=== PATIENT | female | born 1955 | race Caucasian/White ===

== ENCOUNTER 2016-11-08 14:32 | Inpatient (IN) ==
[2016-11-08] MEDS ORDERED: SOLU-MEDROL IV ONE (14:51)
[2016-11-08] MEDS ORDERED: VOLTAREN PO PRN (17:10)
[2016-11-08] MEDS ORDERED: ZOFRAN IV PRN (17:10)
[2016-11-08 17:39] LABS: MANUAL DIFF NEEDED? NO
[2016-11-08 17:54] LABS: BASO% 0.4 % (0.0-0.8); EOS# 0.63 X1000 (0.0-0.7); EOS% 11.8 % (0.0-10.0); HEMATOCRIT 41.3 % (37.0-47.0); HEMOGLOBIN 13.8 g/dL (12.0-16.0); IMM GRAN# 0.02 X1000 (0.0-0.04); IMM GRAN% 0.4 % (0.0-0.5); LYMPH# 2.07 X1000 (1.2-3.4); LYMPH% 38.9 % (20.5-51.1); MCH 30.5 PG (27-31); MCHC 33.4 g/dL (33-37); MCV 91.2 FL (81-99); MONO# 0.43 X1000 (0.11-0.59); MONO% 8.1 % (1.7-9.3); MPV 8.7 FL (7.4-10.4); NEUT% 40.4 % (42.2-75.2); PLT 288 X1000 (130-400); RBC 4.53 XMIL (4.2-5.4)
[2016-11-08 18:17] LABS: AGAP 14; BUN 15 mg/dL (8-22); CHLORIDE 95 mmol/L (98-107); COSMO 277; POTASSIUM 3.8 mmol/L (3.5-5.1); SODIUM 134 mmol/L (136-145); TCO2 25 mmol/L (25-35)
[2016-11-08] MEDS: NS 1,000 ML IV SCH (18:51)
[2016-11-08] MEDS: ROCEPHIN 1 GM/NS 1 GM/50 ML IVPB IV SCH (18:52)
[2016-11-08] MEDS: LOVENOX SUBQ SCH (18:52)
[2016-11-08] MEDS: DUONEB (A & A) INH SCH ×2 (19:26→23:07)
[2016-11-08] MEDS: DULERA 100 MCG/5 MCG INHALER INH SCH (19:27)
[2016-11-08] MEDS: TUDORZA PRESSAIR INHALER INH SCH (19:28)
[2016-11-08] MEDS: SOLU-MEDROL IV SCH (19:49)
[2016-11-08] MEDS: ZITHROMAX 500 MG/NS 500 MG/250 ML IVPB IV SCH (19:54)
[2016-11-08] MEDS: CELEXA PO SCH (20:26)
[2016-11-08] MEDS: GLUCOPHAGE PO SCH (20:26)
[2016-11-08] MEDS: ZANTAC PO SCH (20:26)
[2016-11-08] MEDS: ROBAXIN PO SCH (20:26)
[2016-11-08] MEDS: MEVACOR PO SCH (20:27)
[2016-11-08] MEDS: COZAAR PO SCH (20:27)
[2016-11-08] MEDS: REQUIP PO SCH (20:27)
[2016-11-08] MEDS: COREG PO SCH (20:27)
[2016-11-09] MEDS: SOLU-MEDROL IV SCH ×5 (00:23→23:30)
[2016-11-09] MEDS: DUONEB (A & A) INH SCH ×6 (03:28→22:50)
[2016-11-09] MEDS: NS 1,000 ML IV SCH ×2 (05:33→09:00)
[2016-11-09] MEDS: PROTONIX PO SCH (06:06)
--- NOTE | 2016-11-09 06:46 | Diag Imaging Result Document ---
PROCEDURE NAME: CHEST-2 VIEWS - 11/08/2016 FRONTAL AND LATERAL CHEST, TWO VIEWS: COMPARISON: 09/02/2015. FINDINGS: The lungs are well expanded. The heart is not enlarged. The vessels are not distended. No pneumonia. No pleural effusions. IMPRESSION: No acute abnormality.
[2016-11-09] MEDS: DULERA 100 MCG/5 MCG INHALER INH SCH ×2 (07:30→19:20)
[2016-11-09] MEDS: TUDORZA PRESSAIR INHALER INH SCH ×2 (07:30→19:20)
[2016-11-09] MEDS: REQUIP PO SCH ×2 (08:21→20:34)
[2016-11-09] MEDS: ROBAXIN PO SCH ×3 (08:21→20:35)
[2016-11-09] MEDS: COZAAR PO SCH ×2 (08:22→20:34)
[2016-11-09] MEDS: PATIENT'S OWN MED PO SCH (08:22)
[2016-11-09] MEDS: COREG PO SCH ×2 (08:22→20:34)
[2016-11-09] MEDS: ZANTAC PO SCH ×2 (08:22→20:33)
--- NOTE | 2016-11-09 09:38 | PROGRESS NOTE ---
DATE: 11/09/2016 SUBJECTIVE: Ms. Otero was admitted to [facility] with an acute asthma exacerbation complicated by tracheobronchitis. Her initial chest x-ray was clear. We have been treating her with supplemental O2, DuoNeb nebulizer treatments, and IV Solu-Medrol. She continues with mild shortness of breath and a cough productive of yellowish sputum. She is still wheezing but her air movement has improved. O2 saturations are ranging from 90% to -92% on room air. We added Zantac 150 mg b.i.d. for her underlying reflux in addition to the pantoprazole that she takes daily. She had less reflux-type symptoms last night. OBJECTIVE: Vital signs: Temperature 97.6 degrees, pulse 91, respirations 19, BP 106/62. CV: Regular rate and rhythm. Lungs: Diffuse end-expiratory wheezing with forced expiration. Abdomen: Soft, nontender, with active bowel sounds. ASSESSMENT AND PLAN: 1. Acute asthma exacerbation with tracheobronchitis. I will continue supplemental O2, DuoNeb nebulizer treatments, IV Solu-Medrol and broad-spectrum antibiotics including Zithromax and Rocephin. 2. Hypertension. Her blood pressure is stable. I will continue her current regimen of medications. 3. Type 2 [id number] diabetes mellitus. Blood sugars are trending upward on the steroids. We will continue to pattern sugars and a Humulin R sliding scale. cc: Kelin Rosales MD
[2016-11-09] MEDS: LOVENOX SUBQ SCH (16:48)
[2016-11-09] MEDS: ROCEPHIN 1 GM/NS 1 GM/50 ML IVPB IV SCH (16:48)
[2016-11-09] MEDS: ZITHROMAX 500 MG/NS 500 MG/250 ML IVPB IV SCH (18:00)
[2016-11-09] MEDS: MEVACOR PO SCH (20:34)
[2016-11-09] MEDS: GLUCOPHAGE PO SCH (20:34)
[2016-11-09] MEDS: CELEXA PO SCH (20:34)
[2016-11-09] MEDS: TYLENOL PO PRN (20:35)
[2016-11-09] MEDS ORDERED: HUMALOG SUBQ SCH (21:00)
[2016-11-10] MEDS: NS 1,000 ML IV SCH (01:35)
[2016-11-10] MEDS: DUONEB (A & A) INH SCH ×6 (04:04→23:07)
[2016-11-10] MEDS: SOLU-MEDROL IV SCH ×2 (05:23→17:03)
[2016-11-10] MEDS: HUMALOG SUBQ SCH ×5 (06:10→22:52)
[2016-11-10] MEDS: PROTONIX PO SCH (06:14)
[2016-11-10] MEDS ORDERED: SALINE LOCK IV FLUID XX ONE (06:33)
--- NOTE | 2016-11-10 06:55 | PROGRESS NOTE ---
DATE: 11/10/2016 SUBJECTIVE: Ms. Otero was admitted to [facility] with an acute asthma exacerbation complicated by tracheobronchitis. During the night, her oxygen level dropped to 88% on room air. It is now on 92% on room air. She continues with mild dyspnea and diffuse wheezing. She continues with a persistent cough. She denies any chest pain, palpitations, or anginal equivalents. Blood sugars are still fluctuating on the IV Solu-Medrol. Blood sugars are ranging from 184-285. OBJECTIVE: Vital Signs: Temperature 98.3 degrees, pulse 95, respiratory rate 20, BP 116/78. CV: Regular rate and rhythm. Lungs: End-expiratory wheezing with forced expiration in all lung luis. Abdomen: Soft, nontender, with active bowel sounds. Extremities: Without edema. ASSESSMENT AND PLAN: 1. Acute asthma exacerbation with tracheobronchitis. Her O2 saturations are still marginal. It is worrisome to me that her O2 saturations dropped to 88% during the night. She is still wheezing. I do not believe that it is safe for her to go home. We will continue DuoNeb nebulizer treatments, taper the IV steroids to 80 mg IV q.8 hours due to jitteriness and continue broad-spectrum antibiotics. We will check a PA and lateral chest x-ray. 2. Hypertension. Her blood pressure is stable. I will continue her current regimen of medications. 3. Type 2 [id number] diabetes mellitus. Her blood sugars are trending upward. Because of IV steroids. We will continue her on an 1800 calorie ADA diet. Pattern sugars, Humulin R sliding scale, and her regular home dosage of metformin. cc: Kelin Rosales MD
[2016-11-10] MEDS: DULERA 100 MCG/5 MCG INHALER INH SCH ×2 (08:24→19:26)
[2016-11-10] MEDS: TUDORZA PRESSAIR INHALER INH SCH ×2 (08:25→19:26)
[2016-11-10] MEDS: REQUIP PO SCH ×2 (08:49→22:50)
[2016-11-10] MEDS: COREG PO SCH ×2 (08:49→22:51)
[2016-11-10] MEDS: COZAAR PO SCH ×2 (08:49→22:51)
[2016-11-10] MEDS: ZANTAC PO SCH ×2 (08:49→22:51)
[2016-11-10] MEDS: PATIENT'S OWN MED PO SCH (08:49)
[2016-11-10] MEDS: ROBAXIN PO SCH ×2 (08:49→22:52)
--- NOTE | 2016-11-10 08:52 | Diag Imaging Result Document ---
PROCEDURE NAME: CHEST-2 VIEWS - 11/10/2016 PA AND LATERAL RADIOGRAPH OF THE CHEST: COMPARISON: 11/08/2016. FINDINGS: The lungs are grossly clear. There is no discrete pleural fluid collection or evidence of pneumothorax. The cardiomediastinal silhouette and upper airway are grossly unremarkable. IMPRESSION: No evidence of acute chest pathology.
[2016-11-10] MEDS: ROCEPHIN 1 GM/NS 1 GM/50 ML IVPB IV SCH (17:02)
[2016-11-10] MEDS: LOVENOX SUBQ SCH (17:03)
[2016-11-10] MEDS: ZITHROMAX 500 MG/NS 500 MG/250 ML IVPB IV SCH (17:13)
[2016-11-10] MEDS: GLUCOPHAGE PO SCH (22:51)
[2016-11-10] MEDS: MEVACOR PO SCH (22:51)
[2016-11-10] MEDS: CELEXA PO SCH (22:52)
[2016-11-11] MEDS: SOLU-MEDROL IV SCH ×2 (01:24→09:47)
[2016-11-11] MEDS: DUONEB (A & A) INH SCH ×3 (04:08→10:58)
[2016-11-11] MEDS: TYLENOL PO PRN (04:36)
[2016-11-11 05:12] VITALS: BP 124/79
[2016-11-11] MEDS: HUMALOG SUBQ SCH ×2 (06:19→11:46)
[2016-11-11] MEDS: PROTONIX PO SCH (06:20)
[2016-11-11] MEDS: TUDORZA PRESSAIR INHALER INH SCH (07:59)
[2016-11-11] MEDS: DULERA 100 MCG/5 MCG INHALER INH SCH (07:59)
[2016-11-11] MEDS: REQUIP PO SCH (09:47)
[2016-11-11] MEDS: ZANTAC PO SCH (09:47)
[2016-11-11] MEDS: COZAAR PO SCH (09:47)
[2016-11-11] MEDS: ROBAXIN PO SCH (09:48)
[2016-11-11] MEDS: COREG PO SCH (09:48)
[2016-11-11] MEDS: PATIENT'S OWN MED PO SCH (11:46)
--- NOTE | 2016-11-11 22:32 | DISCHARGE SUMMARY ---
ADMISSION DATE: 11/08/2016 DISCHARGE DATE: 11/11/2016 ADMISSION DIAGNOSIS: Shortness of breath and wheezing. DISCHARGE DIAGNOSES: 1. Acute exacerbation of asthma. 2. Tracheobronchitis. 3. Hypertension, present on arrival. 4. Type 2 diabetes, present on arrival. CONSULTATIONS: None. PROCEDURES: 1. A chest x-ray was performed on 11/08/2016, which revealed no acute abnormality. 2. A chest x-ray was performed on 11/10/2016, which revealed no evidence of acute chest pathology. HISTORY AND PHYSICAL EXAMINATION: See admit note. PHYSICAL EXAMINATION PRIOR TO DISCHARGE: Vital Signs: Temperature 98 degrees, heart rate 91, respirations 18, blood pressure is 124/79. General: Well-nourished, well-developed, in no acute distress. Cardiovascular: Regular rate and rhythm. No significant murmurs, rubs, or gallops. Pulmonary: Clear to auscultation bilaterally. Abdomen: Soft, nontender, nondistended. Positive bowel sounds. Extremities: Moves all extremities well. No significant clubbing, cyanosis, or edema. Dermatologic: Evaluation reveals no evidence of rash. LABORATORY DATA PRIOR TO DISCHARGE: None. HOSPITAL COURSE: Patient was admitted as per history and physical examination. Hospital course per condition is as follows: 1. Acute exacerbation of asthma - Upon admission, the patient was noted to have shortness of breath, bronchospasm, and hypoxia. It was felt this likely was precipitated by an underlying tracheobronchitis. The patient was placed on Rocephin, azithromycin, IV steroids, and bronchodilators. Unfortunately, patient's hospital course was complicated by a slow recovery. The patient was maintained on IV Solu-Medrol throughout hospitalization and routine bronchodilators. She tolerated this very well. On the day of discharge, patient was wheeze- free. She was taking Solu-Medrol 80 mg every 8 hours. The patient expressed her desire to be discharged home, as she has had similar conditions on multiple occasions in the past. I have discussed that often we will taper the IV steroids prior to discharge on oral steroids. She voiced good understanding and wished to pursue outpatient care. The patient will be discharged home with antibiotics as described below. We will continue DuoNeb every 4 hours as needed. We will start a Medrol Dosepak. The patient will need close followup as an outpatient. She understands there is a risk of rebound with discharge home this early. 2. Tracheobronchitis - The patient was diagnosed upon admission. Chest x-ray remained clear. At time of discharge, we will transition patient from Rocephin and azithromycin therapy to levofloxacin. She will complete an additional 5 days as an outpatient. 3. Hypertension - The patient's blood pressure remained reasonably stable while hospitalized on her current regimen. She will be discharged home on her previous home regimen. 4. Type 2 diabetes - Patient's blood sugars increased while hospitalized, associated with steroids. We will continue her home regimen. She is to monitor this, and we will consider whether a sliding-scale insulin is appropriate at home. I suspect with the very short course of steroids, this will not be necessary. DISCHARGE CONDITION: Good. DISPOSITION: Discharge to home. MEDICATIONS: 1. DuoNeb every 4 hours. 2. Dulera 100/5 two puffs twice daily. 3. Pantoprazole 40 mg a day. 4. Levofloxacin 500 mg daily for 5 days. 5. Tylenol 650 mg as needed. 6. Tudorza 1 puff twice daily. 7. Medrol Dosepak. 8. Ranitidine 150 mg twice daily as needed. 9. Citalopram 20 mg at bedtime. 10. Metformin 500 mg at bedtime. 11. Lovastatin 20 mg at bedtime. 12. Losartan 50 mg twice daily. 13. Coreg 6.25 mg twice daily. 14. Adipex 37.5 mg daily. 15. Requip 4 mg at bedtime. FOLLOWUP: The patient is to follow up with Dr. Rosales in the next 1-2 weeks. cc: MD Kelin Watson MD
== END 2016-11-11 13:20 | disposition home or self-care (01) ==
LOC: DIRADM → OBSVTOIN 14:32 → 3N 16:23
PROVIDERS: ADMIT Internal Medicine; ATTEND Internal Medicine